=== PATIENT | female | born 1940 ===

== ENCOUNTER 2024-04-26 11:15 | Inpatient (IN) | payer OTHER ==
[~2024-04-26] VITALS: Ht 152.4 cm; Wt 78.0 kg
[2024-04-26] MEDS ORDERED: ATORVASTATIN CA20 MG PO (13:31)
[2024-05-01] MEDS ORDERED: BUPIVACAINE HCL/MPF 0.5% 30ML VIAL ONE (13:15)
[2024-05-01] MEDS ORDERED: POVIDONE-IODINE 118 ML BOTT TOP ONE (13:15)
[2024-05-01] MEDS ORDERED: HEMOSTATIC MATRIX 1 KIT KIT TOP ONE (13:15)
[2024-05-01] MEDS ORDERED: DIBUCAINE 30 GM TUBE ONE (13:15)
[2024-05-01] MEDS ORDERED: LIDOCAINE HCL 1%/EPINEPHRINE 20ML VIAL IJ ONE (13:15)
[2024-05-01] MEDS ORDERED: METRONIDAZOLE/SODIUM CHLORIDE 500 MG/100 ML PIGGYBACK IV ONE (13:32)
[2024-05-01] MEDS ORDERED: CEFTRIAXONE SODIUM 2,000 MG VIAL ONE (13:32)
[2024-05-01] MEDS ORDERED: SUGAMMADEX SODIUM 200 MG/2 ML VIAL IV ONE (14:49)
[2024-05-01] MEDS ORDERED: ONDANSETRON HCL 2 MG/ML VIAL IV PRN (15:15)
[2024-05-01] MEDS ORDERED: OxyCODONE HCL 5 MG TABLET (ROXICODONE) PO PRN (15:15)
[2024-05-01] MEDS ORDERED: RINGERS SOLUTION,LACTATED 1,000 ML IV SCH (15:15)
[2024-05-01] MEDS ORDERED: MORPHINE SULFATE 4 MG/ML CARTRIDGE IV PRN (15:15)
[2024-05-01] MEDS ORDERED: DEXTROSE 50 % IN WATER 0.5 G/ML VIAL IV PRN (15:15)
[2024-05-01] MEDS ORDERED: LATANOPROST2.5 ML (15:35)
[2024-05-01] MEDS ORDERED: GABAPENTIN 300 MG CAPSULE PO SCH (17:00)
[2024-05-01] MEDS ORDERED: HYOSCYAMINE SULFATE 0.125 MG TAB.SUBL SL SCH (17:00)
[2024-05-01] MEDS ORDERED: POLYETHYLENE GLYCOL 3350 17 GM BLIST.PACK PO SCH (17:00)
[2024-05-01 18:34] LABS: HEMATOCRIT 36.6 % (36.0-45.00); HEMOGLOBIN 12.5 g/dL (12.0-15.00); MEAN CELL VOLUME 89.3 fL (80.00-100.00); MEAN CORPUSCULAR HEMOGLOBIN 30.5 pg (27.00-32.0); MEAN CORPUSCULAR HGB CONC 34.1 g/dl (32.0-36.0); PLATELET COUNT 174 K/uL (150-450); RED CELL DISTRIBUTION WIDTH 13.3 % (11.5-14.5)
[2024-05-01 19:01] LABS: ALBUMIN 3.2 gm/dL (3.4-5.0); CREATININE SERUM 0.68 mg/dL (0.55-1.02); GFR 82.43; MAGNESIUM 1.9 mg/dL (1.8-2.4); PHOSPHOROUS 3.6 mg/dL (2.5-4.9); POTASSIUM 4.43 mEq/L (3.5-5.1)
[2024-05-01] MEDS ORDERED: ACETAMINOPHEN 500 MG GEL..CAP PO ONE (19:30)
[2024-05-01] MEDS ORDERED: FAMOTIDINE/PF 20 MG/2 ML VIAL ONE (19:30)
[2024-05-01] MEDS ORDERED: ACETAMINOPHEN 500 MG GEL..CAP PO SCH (20:00)
[2024-05-01] MEDS ORDERED: FAMOTIDINE/PF 20 MG/2 ML VIAL IV PUSH SCH (21:00)
[2024-05-02 05:51] LABS: HEMATOCRIT 34.9 % (36.0-45.00); HEMOGLOBIN 11.9 g/dL (12.0-15.00); MEAN CELL VOLUME 89.3 fL (80.00-100.00); MEAN CORPUSCULAR HEMOGLOBIN 30.4 pg (27.00-32.0); MEAN CORPUSCULAR HGB CONC 34.1 g/dl (32.0-36.0); PLATELET COUNT 160 K/uL (150-450); RED CELL DISTRIBUTION WIDTH 13.1 % (11.5-14.5)
[2024-05-02 06:34] LABS: CALCIUM 8.8 mg/dL (8.5-10.1); CREATININE SERUM 0.67 mg/dL (0.55-1.02); GFR 83.85; MAGNESIUM 1.8 mg/dL (1.8-2.4); PHOSPHOROUS 3.5 mg/dL (2.5-4.9); POTASSIUM 4.14 mEq/L (3.5-5.1)
[2024-05-02] MEDS ORDERED: ACETAMINOPHEN500 M2 PO (08:09)
[2024-05-02] MEDS ORDERED: ENOXAPARIN SODIUM 40 MG/0.4 ML SYRINGE SUBCUTANEO SCH (17:00)
[2024-05-03] MEDS ORDERED: ENOXAPARIN SODIUM 40 MG/0.4 ML SYRINGE SUBCUTANEO SCH (09:00)
== END 2024-05-02 10:31 | disposition home or self-care (01) | DRG 349 ==
LOC: O/R 05-01 07:35 → SURH 05-01 10:45 → SURG 05-01 17:52
PROVIDERS: ADMIT Surgery; ATTEND Surgery
PROC: 0DBP7ZZ Excision of Rectum, Via Natural or Artificial Opening (ICD-10-PCS; principal; 2024-05-01 10:45)
DX: C20 Malignant neoplasm of rectum (principal); Z20.822 Contact with and (suspected) exposure to COVID-19